=== PATIENT | male | born 1950 | race African-American/Black ===

== ENCOUNTER → 2016-09-08 | Outpatient (CLI) | payer MEDICARE ==
[~2016-09-08] MED LIST: LISI1TAB5 PO
--- NOTE | 2016-09-08 11:07 | KCIC ---
Indication: Head trauma and vertigo. Axial imaging through the brain was performed without contrast. One or more of the following individualized dose reduction techniques were utilized for this examination: 1. Automated exposure control 2. Adjustment of the mA and/or kV according to patient size 3. Use of iterative reconstruction technique. No prior studies are available for comparison. The ventricles and sulci are within normal limits. No sulcal effacement, midline shift or hemorrhage is detected. The cisterns are patent. The visualized paranasal sinuses are clear. IMPRESSION: No acute intracranial process is detected. Electronically signed by: Abdoulaye Garcia MD (09/08/2016 11:03 AM)
== END | disposition home or self-care (01) ==
LOC: KCIC CT 10:37
PROVIDERS: ATTEND Family Medicine
DX: S09.90XA Unspecified injury of head, initial encounter (principal); X58.XXXA Exposure to other specified factors, initial encounter; Y93.89 Activity, other specified; Y92.89 Other specified places as the place of occurrence of the external cause; Y99.8 Other external cause status
CPT/HCPCS: 70450

== ENCOUNTER → 2019-02-27 | Outpatient (CLI) | payer MEDICARE, OTHER ==
[~2019-02-27] MED LIST changes: +LISI1TAB19 PO; -LISI1TAB5 PO
--- NOTE | 2019-02-27 14:14 | KCIC ---
Chest radiograph 02/27/2019 12:00 AM INDICATION: Right-sided chest pain for 3 weeks COMPARISON: None available TECHNIQUE: Frontal and lateral views of the chest are provided. FINDINGS: The cardiomediastinal silhouette is within normal limits. There are no pleural effusions. There is no pulmonary vascular congestion. There is no pneumothorax. The lungs are clear. No significant osseous abnormality is identified. IMPRESSION: No acute cardiopulmonary process. Electronically signed by: Salma Norris MD (02/27/2019 2:11 PM) [id number]
== END | disposition home or self-care (01) ==
LOC: KCIC 08:38
PROVIDERS: ATTEND Family Medicine
DX: R07.89 Other chest pain (principal)
CPT/HCPCS: 71046